=== PATIENT | female | born 1965 | race Caucasian/White ===

== ENCOUNTER 2018-10-15 21:12 | Emergency (ER) | payer OTHER ==
[~2018-10-15] VITALS: Ht 165.1 cm; Wt 85.0 kg
[2018-10-15 22:13] LABS: BASOPHILS # (AUTO) 0.05 x10^3/uL (0-0.1); BASOPHILS % (AUTO) 1 % (0-1); EOSINOPHILS # (AUTO) 0.19 x10^3/uL (0-0.4); EOSINOPHILS % (AUTO) 3 % (1-7); LYMPHOCYTES # (AUTO) 2.24 x10^3/uL (1-3.4); LYMPHOCYTES % (AUTO) 33 % (22-44); MD NO; MEAN CORPUSCULAR HEMOGLOBIN 29.4 pg (27.0-34.8); MEAN CORPUSCULAR VOLUME 86.4 fL (80-100); MEAN PLATELET VOLUME 8.2 fL (7.4-10.4); MONOCYTES # (AUTO) 0.54 x10^3/uL (0.2-0.8); MONOCYTES % (AUTO) 8 % (2-9); NEUTROPHILS # (AUTO) 3.74 x10^3/uL (1.8-6.8); NEUTROPHILS % (AUTO) 55 % (42-75); PLATELET COUNT 246 x10^3/uL (130-400); RED BLOOD COUNT 4.58 x10^6/uL (3.82-5.3)
[2018-10-15 22:27] LABS: ALBUMIN 3.7 g/dL (3.4-5.0); ANION GAP 6 mmol/L (5-15); CHLORIDE 110 mmol/L (98-107); CREATININE 0.86 mg/dL (0.55-1.02)
[2018-10-15 22:31] LABS: FREE T4 (FREE THYROXINE) 1.32 ng/dL (0.76-1.46); TROPONIN I < 0.015 ng/mL (0.000-0.045)
[2018-10-15 22:36] LABS: THYROID STIMULATING HORMONE 0.241 mIU/L (0.358-3.740)
[2018-10-15 22:58] VITALS: BP 107/51
[2018-10-15] MEDS ORDERED: LEVO112T2 PO (23:00)
== END 2018-10-15 23:23 | disposition home or self-care (01) ==
LOC: ED 23:17
DX: R00.2 Palpitations (principal)
CPT/HCPCS: 36415; 80048; 82040; 84439; 84443; 84484; 85025; 93005; 99284

== ENCOUNTER 2019-01-23 09:02 | Day surgery (SDC) | payer OTHER ==
[~2019-01-23] VITALS: Ht 165.1 cm; Wt 84.0 kg
[~2019-01-23 09:02] MED LIST: LEVO112T2 PO
[2019-01-23 09:36] VITALS: BP 125/60
[2019-01-23] MEDS ORDERED: SODIUM CHLORIDE 0.9% 1,000 ML IV ONE (10:00)
[2019-01-23] MEDS ORDERED: CHOL500022 PO (10:13)
[2019-01-23] MEDS ORDERED: PROPOFOL 10 MG/ML, 20ML ONE (11:04)
== END 2019-01-23 12:30 | disposition home or self-care (01) ==
LOC: CACL 09:02
PROVIDERS: ATTEND Internal Medicine Cardiovascular Disease
DX: I36.1 Nonrheumatic tricuspid (valve) insufficiency (principal); Q21.1 Atrial septal defect; Z72.89 Other problems related to lifestyle; Z88.0 Allergy status to penicillin
CPT/HCPCS: 93312; 93321; 93325; J2704

== ENCOUNTER → 2020-08-21 | Outpatient (CLI) | payer OTHER ==
[~2020-08-21] MED LIST changes: +CHOL500022 PO
== END | disposition home or self-care (01) ==
LOC: CFH 07:54
PROVIDERS: ATTEND Internal Medicine Cardiovascular Disease
DX: R01.1 Cardiac murmur, unspecified (principal); R00.2 Palpitations
CPT/HCPCS: 93306

== ENCOUNTER 2021-02-04 08:19 | Emergency (ER) | payer OTHER ==
[~2021-02-04] VITALS: Ht 165.1 cm; Wt 84.7 kg
--- NOTE | 2021-02-04 08:35 | NUR ---
EKG DONE IN TRIAGE, SIGNED BY MADI.
--- NOTE | 2021-02-04 09:10 | NUR ---
Pt is sitting comfortably in chair. Pt is here d/t "dizzyness and blurred vision, blurred vision last night for 10 minutes. dizzy off and on for the past three weeks. Feeling N off and on, but currently feels ok."
[2021-02-04 09:13] VITALS: BP 139/68
[2021-02-04] MEDS ORDERED: LEVO88TA2 PO (09:24)
[2021-02-04] MEDS ORDERED: LEVO75TA PO (09:25)
[2021-02-04 09:39] LABS: BASOPHILS % (AUTO) 1 % (0-1); EOSINOPHILS % (AUTO) 1 % (1-7); LYMPHOCYTES % (AUTO) 17 % (22-44); MEAN CORPUSCULAR HEMOGLOBIN 28.5 pg (27.0-34.8); MEAN CORPUSCULAR HGB CONC 33.7 g/dL (32.4-35.8); MONOCYTES % (AUTO) 7 % (2-9); NEUTROPHILS % (AUTO) 75 % (42-75); PLATELET COUNT 317 x10^3/uL (130-400); RED BLOOD COUNT 5.04 x10^6/uL (3.82-5.3); RED CELL DISTRIBUTION WIDTH 12.9 % (9.6-15.2)
[2021-02-04 09:41] LABS: MD NO
[2021-02-04 09:49] LABS: ANION GAP 5 mmol/L (5-15); CALCIUM 9.5 mg/dL (8.5-10.1); CHLORIDE 109 mmol/L (98-107)
== END 2021-02-04 10:26 | disposition home or self-care (01) ==
LOC: ED 10:20
DX: R55 Syncope and collapse (principal); R42 Dizziness and giddiness; R11.0 Nausea; Z88.0 Allergy status to penicillin; Z88.1 Allergy status to other antibiotic agents
CPT/HCPCS: 36415; 80048; 85025; 93005; 99284